=== PATIENT | female | born 1950 | race Caucasian/White ===

== ENCOUNTER 2022-07-15 20:35 | Emergency (ER) | payer MEDICARE, OTHER ==
[~2022-07-15] VITALS: Ht 167.6 cm; Wt 91.8 kg
[~2022-07-15 20:35] MED LIST: CRANBERRY200 MG PO; FISH OIL 1,0001 EAC2 NG; GARLIC1 EACH PO; NORCO 5-325 TA1 EACH PO; PANTOPRAZOLE SO40 MG PO; TRAMADOL HCL50 MG PO; VITAMIN D32000 UNI1 PO; VITAMIN E400 UNI1 PO
[2022-07-15] MEDS ORDERED: ATORVASTATIN CA80 MG PO (21:01)
[2022-07-15] MEDS ORDERED: MELOXICAM15 MG PO (21:03)
[2022-07-15] MEDS ORDERED: METOPROLOL TART50 MG PO (21:03)
[2022-07-15] MEDS ORDERED: EZETIMIBE10 MG PO (21:03)
[2022-07-15] MEDS ORDERED: CLOPIDOGREL75 MG PO (21:03)
[2022-07-15] MEDS ORDERED: CYCLOBENZAPRINE10 MG PO (23:17)
== END 2022-07-15 23:50 | disposition home or self-care (01) ==
LOC: ED 20:35
DX: S29.012A Strain of muscle and tendon of back wall of thorax, initial encounter (principal); Z87.891 Personal history of nicotine dependence; Z88.5 Allergy status to narcotic agent; Z79.899 Other long term (current) drug therapy; X58.XXXA Exposure to other specified factors, initial encounter
CPT/HCPCS: 72070; 96372; 99283-25; J1885; J3360